=== PATIENT | male | born 1955 | race Caucasian/White ===

== ENCOUNTER 2016-09-13 17:22 | Emergency (ER) | payer SELFPAY ==
[2016-09-13] MEDS ORDERED: DIPHTH/TETANUS/ACEL PERTUSSIS (BOOSTER) 0.5 ML VIAL/PFS IM ONE ×2 (17:31→17:53)
[2016-09-13] MEDS ORDERED: ONDANSETRON HCL 4 MG/2 ML VIAL ONE (17:31)
[2016-09-13] MEDS ORDERED: MORPHINE SULFATE 8 MG/ML INJ ONE (17:31)
--- NOTE | 2016-09-13 17:44 | RADRPT ---
EXAM DATE/TIME: 09/13/2016 17:18 [facility] COMPARISON: No previous studies available for comparison. INDICATIONS : Trauma. MEDICAL HISTORY : Patient fell. SURGICAL HISTORY : None. ENCOUNTER: Initial ACUITY: 1 day PAIN SCORE: 4/10 LOCATION: chest FINDINGS: A single view of the chest demonstrates the lungs to be symmetrically aerated without evidence of mas s, infiltrate or effusion. The cardiomediastinal contours are unremarkable. Osseous structures are intact. CONCLUSION: Normal examination. Dominga Garcia MD on September 13, 2016 at 17:42 Board Certified Radiologist. This report was verified electronically.
--- NOTE | 2016-09-13 17:45 | RADRPT ---
EXAM DATE/TIME: 09/13/2016 17:18 [facility] COMPARISON: No previous studies available for comparison. INDICATIONS : Trauma. MEDICAL HISTORY : Patient fell. SURGICAL HISTORY : None. ENCOUNTER: Initial ACUITY: 1 day PAIN SCORE: 4/10 LOCATION: Pelvis. FINDINGS: A single frontal view of the pelvis demonstrates no evidence of fracture. The bony pelvic ring is in tact. Bony mineralization is normal. The soft tissues are intact. CONCLUSION: Unremarkable examination of the pelvis. Dominga Garcia MD on September 13, 2016 at 17:43 Board Certified Radiologist. This report was verified electronically.
[2016-09-13 17:52] LABS: AUTOMATED NEUTROPHIL # 4.6 TH/MM3 (1.8-7.7); BASOPHIL % 0.5 % (0.0-2.0); EOSINOPHIL # 0.3 TH/MM3 (0-0.4); EOSINOPHIL % 3.3 % (0.0-4.0); HEMATOCRIT 41.8 % (39.0-51.0); HEMO FLAGS DIFF FINAL; I-STAT POTASSIUM 3.8 MMOL/L (3.5-4.9); LYMPH % 29.4 % (9.0-44.0); LYMPHOCYTE # 2.3 TH/MM3 (1.0-4.8); MEAN CORPUSCULAR HEMOGLOBIN 30.6 PG (27.0-34.0); MEAN CORPUSCULAR HGB CONC 33.6 % (32.0-36.0); NEUT % 58.8 % (16.0-70.0); PLATELET COUNT 184 TH/MM3 (150-450); RED BLOOD COUNT 4.59 MIL/MM3 (4.50-5.90); RED CELL DISTRIBUTION WIDTH 12.5 % (11.6-17.2); WHITE BLOOD COUNT 7.8 TH/MM3 (4.0-11.0)
[2016-09-13 18:00] LABS: APTT (PATIENT) 25.2 SEC (24.3-30.1); INTERNATIONAL NORMALIZED RATIO 1.1 RATIO; PROTHROMBIN TIME - PATIENT 12.7 SEC (9.8-11.6)
[2016-09-13] MEDS ORDERED: SODIUM CHLOR 0.9% 1000 ML INJ 1,000 ML IV ONE (18:00)
[2016-09-13] MEDS ORDERED: MORPHINE SULFATE 4 MG/ML INJ IV ONE (18:00)
[2016-09-13] MEDS ORDERED: ONDANSETRON HCL 4 MG/2 ML VIAL IV ONE (18:00)
--- NOTE | 2016-09-13 18:07 | PD ---
HPI Chief Complaint: trauma alert Time Seen by Provider: 17:26 Travel History International Travel<30 days: No Contact w/Intl Traveler<30days: No Traveled to known affect area: No History of Present Illness HPI The patient is a middle-aged male who presents emergency department via private vehicle after a fall. The patient states he was working in the attic when he fell to the attic and landed on a tile floor. The patient estimates he fell anywhere from 1018 feet. The patient states he landed on his back and struck his right elbow as well as his head. The patient is unsure if there was a loss of consciousness. He does complain of mild headache, some posterior neck pain and upper back pain as well as right elbow pain. The patient does admit to drinking approximately 5-6 beers earlier today. Last tetanus shot is unknown. The patient denies any chest pain, shortness breath, nausea, vomiting, or abdominal pain. He denies any numbness, tingling, or weakness of the upper or lower extremities. [facility] Past Medical History Medical History: Denies Significant Hx Past Surgical History Narrative Surgical Appendectomy Family History Narrative Family History Not contributory Social History Alcohol Use: Yes Tobacco Use: Yes Allergies-Medications (Allergen,Severity, Reaction): Coded Allergies: No Known Allergies (Unverified , 09/13/16) Reported Meds & Prescriptions Reported Meds & Active Scripts Active No Active Prescriptions or Reported Medications Review of Systems Except as stated in HPI: all other systems reviewed are Neg HENT: Positive: Headaches, Neck Pain Cardiovascular: No: Chest Pain or Discomfort Respiratory: No: Shortness of Breath Gastrointestinal: No: Nausea, Vomiting, Abdominal Pain Musculoskeletal: Positive: Pain Neurologic: Positive: Headache, Other (unsure if there was a loss of consciousness), No: Change in Mentation, Paresthesia, Sensory Disturbance Physical Exam Narrative GENERAL: Awake, alert, pleasant middle-aged male who appears to be in his 50s or 60s. SKIN: Warm and dry. HEAD: Atraumatic. Normocephalic. EYES: Pupils equal and round. Pupils are 3 mm bilateral reactive. EOMs are intact. ENT: No nasal bleeding or discharge. Breath smells of alcohol. NECK: Trachea midline. No JVD. Cervical collar was in place. Patient has midline tenderness. CARDIOVASCULAR: Regular rate and rhythm. No murmur appreciated. RESPIRATORY: No accessory muscle use. Clear to auscultation. Breath sounds equal bilaterally. GASTROINTESTINAL: Abdomen soft, non-tender, nondistended. No rebound tenderness. MUSCULOSKELETAL: Patient has a small stellate laceration on the posterior aspect of the right elbow. Mild tenderness of the affected area, however, he is able flex and extend the right elbow as well as supinate and pronate. Back: Tenderness over the superior thoracic spine, well-healed scar in the right scapular area. Minimal tenderness over the paravertebral muscles in the mid lumbar region. No obvious hematoma noted. NEUROLOGICAL: Awake and alert. No obvious cranial nerve deficits. Motor grossly within normal limits. Normal speech. Patient is oriented to person, place, month, and year. Sensation is symmetric on the upper and lower extremities. Patient is able to move all 4 extremities. PSYCHIATRIC: Appropriate mood and affect; insight and judgment normal. Data Data Orders Morphine Inj (Morphine Inj) (09/13/16 17:31) Ondansetron Inj (Zofran Inj) (09/13/16 17:31) Rlse-Run-Tqzeha (Booster) Inj (Boostrix (09/13/16 17:31) I-Stat Profile (09/13/16 17:32) I-Stat Creatinine (09/13/16 17:32) Complete Blood Count With Diff (09/13/16 17:32) Prothrombin Time / Inr (Pt) (09/13/16 17:32) Act Partial Throm Time (Ptt) (09/13/16 17:32) Type And Screen (09/13/16 17:32) Alcohol (Ethanol) (09/13/16 17:32) Chest, Single Ap (09/13/16 17:32) Pelvis, Ap Only (Routine) (09/13/16 17:32) Ct Brain W/O Iv Contrast(Rout) (09/13/16 17:32) Ct Cerv Spine W/O Contrast (09/13/16 17:32) Ct Abd/Pel W Iv Contrast(Rout) (09/13/16 17:32) Ct Thorax/ Chest W Iv Contrast (09/13/16 17:32) Ct Thor Spine W/O Contrast (09/13/16 17:32) Ct Lumb Spine W/O Contrast (09/13/16 17:32) Iv Access Insert/Monitor (09/13/16 17:32) Ecg Monitoring (09/13/16 17:32) Oximetry (09/13/16 17:32) Oxygen Administration (09/13/16 17:32) Sodium Chlor 0.9% 1000 Ml Inj (Ns 1000 M (09/13/16 18:00) Nmnu-Jtr-Uwumjb (Booster) Inj (Boostrix (09/13/16 17:53) Ondansetron Inj (Zofran Inj) (09/13/16 18:00) Morphine Inj (Morphine Inj) (09/13/16 18:00) Elbow, Limited (Ap&Lat) (09/13/16 ) Shoulder, Limited(2vws) (09/13/16 ) Iohexol 350 Inj (Omnipaque 350 Inj) (09/13/16 18:11) Labs Laboratory Tests Test 09/13/16 17:20 White Blood Count 7.8 TH/MM3 Red Blood Count 4.59 MIL/MM3 Hemoglobin 14.0 GM/DL Bedside Hemoglobin 14.6 G/DL Hematocrit 41.8 % Bedside Hematocrit 43.0 % Mean Corpuscular Volume 91.0 FL Mean Corpuscular Hemoglobin 30.6 PG Mean Corpuscular Hemoglobin 33.6 % Concent Red Cell Distribution Width 12.5 % Platelet Count 184 TH/MM3 Mean Platelet Volume 8.6 FL Neutrophils (%) (Auto) 58.8 % Lymphocytes (%) (Auto) 29.4 % Monocytes (%) (Auto) 8.0 % Eosinophils (%) (Auto) 3.3 % Basophils (%) (Auto) 0.5 % Neutrophils # (Auto) 4.6 TH/MM3 Lymphocytes # (Auto) 2.3 TH/MM3 Monocytes # (Auto) 0.6 TH/MM3 Eosinophils # (Auto) 0.3 TH/MM3 Basophils # (Auto) 0.0 TH/MM3 CBC Comment DIFF FINAL Differential Comment Prothrombin Time 12.7 SEC Prothromb Time International 1.1 RATIO Ratio Activated Partial 25.2 SEC Thromboplast Time Bedside Sodium 138 MMOL/L Bedside Potassium 3.8 MMOL/L Bedside Chloride 98 MMOL/L Bedside Blood Urea Nitrogen 14 MG/DL Bedside Creatinine 1.1 MG/DL Bedside Glucose 92 MG/DL Ethyl Alcohol Level 104 MG/DL Blood Type B POSITIVE Antibody Screen NEGATIVE [facility] Medical Screen Exam Complete: Yes Emergency Medical Condition: Yes Medical Record Reviewed: Yes EKG Prior to Arrival: No Interpretation(s) Laboratory Tests Test 09/13/16 17:20 White Blood Count 7.8 TH/MM3 Red Blood Count 4.59 MIL/MM3 Hemoglobin 14.0 GM/DL Bedside Hemoglobin 14.6 G/DL Hematocrit 41.8 % Bedside Hematocrit 43.0 % Mean Corpuscular Volume 91.0 FL Mean Corpuscular Hemoglobin 30.6 PG Mean Corpuscular Hemoglobin 33.6 % Concent Red Cell Distribution Width 12.5 % Platelet Count 184 TH/MM3 Mean Platelet Volume 8.6 FL Neutrophils (%) (Auto) 58.8 % Lymphocytes (%) (Auto) 29.4 % Monocytes (%) (Auto) 8.0 % Eosinophils (%) (Auto) 3.3 % Basophils (%) (Auto) 0.5 % Neutrophils # (Auto) 4.6 TH/MM3 Lymphocytes # (Auto) 2.3 TH/MM3 Monocytes # (Auto) 0.6 TH/MM3 Eosinophils # (Auto) 0.3 TH/MM3 Basophils # (Auto) 0.0 TH/MM3 CBC Comment DIFF FINAL Differential Comment Prothrombin Time 12.7 SEC Prothromb Time International 1.1 RATIO Ratio Activated Partial 25.2 SEC Thromboplast Time Bedside Sodium 138 MMOL/L Bedside Potassium 3.8 MMOL/L Bedside Chloride 98 MMOL/L Bedside Blood Urea Nitrogen 14 MG/DL Bedside Creatinine 1.1 MG/DL Bedside Glucose 92 MG/DL Ethyl Alcohol Level 104 MG/DL Blood Type B POSITIVE Antibody Screen NEGATIVE Last Impressions Thoracic Spine CT 09/13/161731 Signed Impressions: Service Date/Time: August 17:44 - CONCLUSION: No evidence of acute bony injury in the thoracic spine. Ulysses Bautista MD Pelvis X-Ray [id number]/161731 Signed Impressions: Service Date/Time: August 17:18 - CONCLUSION: Unremarkable examination of the pelvis. Dominga Garcia MD Lumbar Spine CT [id number]/161731 Signed Impressions: Service Date/Time: August 17:44 - CONCLUSION: No acute bony injury in the lumbosacral spine Ulysses Bautista MD Head CT [id number] Signed Impressions: Service Date/Time: August 17:34 - CONCLUSION: 1. No acute intracranial abnormality. Elian Beaver MD Chest X-Ray [id number] Signed Impressions: Service Date/Time: August 17:18 - CONCLUSION: Normal examination. Dominga Garcia MD Chest CT [id number]/13/161731 Signed Impressions: Service Date/Time: August 17:44 - CONCLUSION: 1. Small soft tissue injury along the anterior aspect of the chest in the midline. 2. CT scan of the thorax is otherwise within normal limits. Elian Beaver MD Cervical Spine CT [id number]/13/161731 Signed Impressions: Service Date/Time: August 17:36 - CONCLUSION: No evidence of acute bony injury to cervical spine Ulysses Bautista MD Abdomen/Pelvis CT 09/[id number]/161731 Signed Impressions: Service Date/Time: August 17:40 - CONCLUSION: Small nonspecific low-density liver lesion. No evidence of acute injury in the abdomen or pelvis. Ulysses Bautista MD Shoulder X-Ray 09/13/16 0000 Signed Impressions: Service Date/Time: August 18:01 - CONCLUSION: 1. No acute bony abnormality of the right shoulder identified. Elian Beaver MD Elbow X-Ray 09/13/16 0000 Signed Impressions: Service Date/Time: August 17:57 - CONCLUSION: 1. No acute bony abnormality identified. Elian Beaver MD Differential Diagnosis Differential diagnosis includes closed head injury, concussion, intracranial hemorrhage, cervical fracture, thoracic vertebral fracture, elbow fracture, laceration, contusion, hematoma. Narrative Course ATLS protocol was followed. The patient's airway, breathing, and circulation were intact upon arrival. 2 large-bore IVs were established, labs were drawn and sent, and the patient was placed on cardiac telemetry monitoring and continuous pulse oximetry monitoring. Chest x-ray and pelvis x-ray were obtained. The patient was magazine editor morphine, Zofran, IV fluids, and his tetanus shot was updated. The patient then went to CT for CT of the brain, cervical spine, thoracic spine, lumbar spine, and abdomen/pelvis. Chest x-ray was unremarkable. Pelvis x-ray was unremarkable. The patient went to CT, CT of the brain, cervical spine, thorax, thoracic spine, lumbar spine, and abdomen/ pelvis were negative. Patient did fall from greater than 10 feet, has alcohol level of 106, but is nonfocal on exam and is oriented. X-ray the right elbow was negative for fracture or foreign body. Patient's laceration was repaired by the physician food trades assistants, Jose Carmen PA-C. Please refer to the procedure no. The patient was evaluated by the trauma surgeon, the patient will be discharged home with a ride. Patient is advised to have wound care to the right elbow, jay jay removed in 10 days, monitor for signs of infection, to follow-up with his primary physician. Diagnosis Diagnosis: Primary Impression: Closed head injury Qualified Code: S09.90XA - Closed head injury, initial encounter Additional Impressions: Trauma Laceration of elbow Qualified Code: S51.011A - Laceration of elbow, right, initial encounter Patient Instructions: General Instructions Additional Instructions: Wound care instructions. Medications as directed. [place] removed in 10 days. Polysporin twice a day, monitor for signs of infection. Return if symptoms worsen or progress. Med/Other Pt SpecificInfo: Prescription(s) given Scripts Ibuprofen 400 Mg Xac601 Mg PO Q6H PRN (PAIN SCALE 1 TO 10) #20 TAB Ref 0 Prov:Toan Barry MD 09/13/16 Hydrocodone-Acetaminophen ([place])5-325 mg Tab1 Tab PO Q6H PRN (PAIN) #15 TAB Ref 0 Prov:Toan Barry MD 09/13/16 Disposition: DISCHARGE HOME Condition: Stable Toan Barry MD Sep 13, 2016 18:07
[2016-09-13] MEDS ORDERED: IOHEXOL 350 MG/ML 10 ML VIAL (for RAD DIAG) IV ONE (18:11)
--- NOTE | 2016-09-13 18:19 | RADRPT ---
EXAM DATE/TIME: 09/13/2016 17:44 [facility] COMPARISON: CT ABDOMEN & PELVIS W CONTRAST, September 13, 2016, 17:40. INDICATIONS : Trauma, fall from attic. IV CONTRAST: 100 cc Omnipaque 350 (iohexol) IV ; Cumulative dose for multiple exams. RADIATION DOSE: 10.05 CTDIvol (mGy) ; Combined studies - Thorax/Abdomen/Pelvis MEDICAL HISTORY : Non-responsive. SURGICAL HISTORY : Non-responsive. ENCOUNTER: Initial ACUITY: 1 day PAIN SCALE: Non-responsive LOCATION: chest TECHNIQUE: Volumetric scanning of the chest was performed. Using automated exposure control and adjustment of t he mA and/or kV according to patient size, radiation dose was kept as low as reasonably achievable to obtain optimal diagnostic quality images. FINDINGS: LUNGS: There is no consolidation or pneumothorax. No concerning pulmonary nodule is visualized. PLEURA: There is no pleural thickening or pleural effusion. MEDIASTINUM: The heart and great vessels demonstrate no acute abnormality. There is no mediastinal or hilar lymph adenopathy. AXILLAE: Within normal limits. No lymphadenopathy. SKELETAL: Within normal limits for patient age. MISCELLANEOUS: The visualized upper abdominal organs demonstrate no acute abnormality. There is a small subcutaneous laceration along the anterior aspect of the sternum. CONCLUSION: 1. Small soft tissue injury along the anterior aspect of the chest in the midline. 2. CT scan of the thorax is otherwise within normal limits. Elian Beaver MD on September 13, 2016 at 18:16 Board Certified Radiologist. This report was verified electronically.
[2016-09-13 18:20] VITALS: BP 200/86; PULSE 69; RESP 18; O2SAT 100
--- NOTE | 2016-09-13 18:20 | RADRPT ---
EXAM DATE/TIME: 09/13/2016 17:34 [facility] COMPARISON: No previous studies available for comparison. INDICATIONS : Trauma, fall from attic. RADIATION DOSE: 69.15 CTDIvol (mGy) MEDICAL HISTORY : Non-responsive. SURGICAL HISTORY : Non-responsive. ENCOUNTER: Initial ACUITY: 1 day PAIN SCALE: Non-responsive LOCATION: cranial TECHNIQUE: Multiple contiguous axial images were obtained of the head. Using automated exposure control and adj ustment of the mA and/or kV according to patient size, radiation dose was kept as low as reasonably a chievable to obtain optimal diagnostic quality images. FINDINGS: CEREBRUM: The ventricles are normal for age. No evidence of midline shift, mass lesion, hemorrhage or acute in farction. No extra-axial fluid collections are seen. POSTERIOR FOSSA: The cerebellum and brainstem are intact. The 4th ventricle is midline. The cerebellopontine angle i s unremarkable. EXTRACRANIAL: The visualized portion of the orbits is intact. SKULL: The calvaria is intact. No evidence of skull fracture. CONCLUSION: 1. No acute intracranial abnormality. Elian Beaver MD on September 13, 2016 at 18:18 Board Certified Radiologist. This report was verified electronically.
--- NOTE | 2016-09-13 18:22 | RADRPT ---
EXAM DATE/TIME: 09/13/2016 18:01 [facility] COMPARISON: ELBOW RIGHT LIMITED (AP & LAT), September 13, 2016, 17:57. INDICATIONS : Trauma alert, fall, right shoulder pain. MEDICAL HISTORY : Unobtainable. SURGICAL HISTORY : Unobtainable. ENCOUNTER: Initial ACUITY: 1 day PAIN SCORE: 7/10 LOCATION: Right arm. FINDINGS: The bony mineralization is normal. The humeral head is well situated within the glenoid fossa. No acu te fracture seen. Limited portion of right lung apex visualized is clear. CONCLUSION: 1. No acute bony abnormality of the right shoulder identified. Elian Beaver MD on September 13, 2016 at 18:20 Board Certified Radiologist. This report was verified electronically.
--- NOTE | 2016-09-13 18:23 | RADRPT ---
EXAM DATE/TIME: 09/13/2016 17:36 [facility] COMPARISON: No previous studies available for comparison. INDICATIONS : Trauma, fall from attic. RADIATION DOSE: 37.64 CTDIvol (mGy) MEDICAL HISTORY : Non-responsive. SURGICAL HISTORY : Non-responsive. ENCOUNTER: Initial ACUITY: 1 day PAIN SCALE: Non-responsive LOCATION: neck TECHNIQUE: Volumetric scanning of the cervical spine was performed. Multiplanar reconstructions in the sagittal, coronal and oblique axial planes were performed. Using automated exposure control and adjustment o f the mA and/or kV according to patient size, radiation dose was kept as low as reasonably achievable to obtain optimal diagnostic quality images. FINDINGS: There is slight anterolisthesis C6 relative to C7. Alignment is otherwise satisfactory. There is no e vidence of cervical spine fracture. Degenerative changes are present with disc space narrowing most s ignificantly at C6-7 and to a lesser degree at other levels. Small endplate osteophytes are noted. Th ere is no significant bony canal or foraminal compromise. There is no evidence of paraspinal hematoma CONCLUSION: No evidence of acute bony injury to cervical spine Ulysses Bautista MD on September 13, 2016 at 18:20 Board Certified Radiologist. This report was verified electronically.
--- NOTE | 2016-09-13 18:24 | RADRPT ---
EXAM DATE/TIME: 09/13/2016 17:57 [facility] COMPARISON: CHEST SINGLE AP, September 13, 2016, 17:18. INDICATIONS : Trauma alert, fall, right elbow pain. MEDICAL HISTORY : Unobtainable. SURGICAL HISTORY : Unobtainable. ENCOUNTER: Initial ACUITY: 1 day PAIN SCORE: 7/10 LOCATION: Right arm. FINDINGS: The osseous structures of the right elbow are intact. There is a small area of soft tissue laceration along the olecranon. No joint effusion is present. CONCLUSION: 1. No acute bony abnormality identified. Elian Beaver MD on September 13, 2016 at 18:22 Board Certified Radiologist. This report was verified electronically.
--- NOTE | 2016-09-13 18:26 | RADRPT ---
EXAM DATE/TIME: 09/13/2016 17:40 [facility] COMPARISON: No previous studies available for comparison. INDICATIONS : Trauma, fall from attic. IV CONTRAST: 100 cc Omnipaque 350 (iohexol) IV ; Cumulative dose for multiple exams. ORAL CONTRAST: No oral contrast ingested. RADIATION DOSE: 10.05 CTDIvol (mGy) ; Combined studies - Thorax/Abdomen/Pelvis MEDICAL HISTORY : Non-responsive. SURGICAL HISTORY : Non-responsive. ENCOUNTER: Initial ACUITY: 1 day PAIN SCALE: Non-responsive LOCATION: abdomen TECHNIQUE: Volumetric scanning of the abdomen and pelvis was performed. Using automated exposure control and ad justment of the mA and/or kV according to patient size, radiation dose was kept as low as reasonably achievable to obtain optimal diagnostic quality images. FINDINGS: There is mild motion degradation limited visualization of the upper abdomen. LOWER LUNGS: The visualized lower lungs are clear. LIVER: There is a slightly greater than 1 cm nonspecific low density in the lateral aspect of the right lobe of the liver. This may be a small cyst or hemangioma. It does not have the appearance of a contusion . SPLEEN: Normal size without lesion. PANCREAS: Within normal limits. KIDNEYS: Normal in size and shape. There is no mass, stone or hydronephrosis. ADRENAL GLANDS: Within normal limits. VASCULAR: There is no aortic aneurysm. BOWEL/MESENTERY: The stomach, small bowel, and colon demonstrate no acute abnormality. There is no free intraperitone al air or fluid. ABDOMINAL WALL: Within normal limits. RETROPERITONEUM: There is no lymphadenopathy. BLADDER: No wall thickening or mass. REPRODUCTIVE: Within normal limits. INGUINAL: There is no lymphadenopathy or hernia. MUSCULOSKELETAL: Within normal limits for patient age. CONCLUSION: Small nonspecific low-density liver lesion. No evidence of acute injury in the abdomen or pelvis. Ulysses Bautista MD on September 13, 2016 at 18:22 Board Certified Radiologist. This report was verified electronically.
--- NOTE | 2016-09-13 18:28 | RADRPT ---
EXAM DATE/TIME: 09/13/2016 17:44 [facility] COMPARISON: No previous studies available for comparison. INDICATIONS : Trauma, fall from attic. RADIATION DOSE: CTDIvol (mGy) ; Reconstructed from previous dataset MEDICAL HISTORY : Non-responsive. SURGICAL HISTORY : Non-responsive. ENCOUNTER: Initial ACUITY: 1 day PAIN SCALE: Non-responsive LOCATION: Paraspinal TECHNIQUE: Volumetric scanning of the lumbar spine was performed. Multiplanar reconstructions in the sagittal, coronal and oblique axial planes were performed. Using automated exposure control and adjustment of the mA and/or kV according to patient size, radiation dose was kept as low as reasonably achievable t o obtain optimal diagnostic quality images. FINDINGS: The lumbar spine alignment is satisfactory. There is no evidence of acute fracture. There is an old r ight-sided pars fracture at L5 without significant associated spondylolisthesis. There is mild arthri tic change with small endplate osteophytes at multiple levels and mild posterior facet arthropathy at several levels. There is no evidence of bony canal or foraminal compromise. No paraspinal hematoma i s present. CONCLUSION: No acute bony injury in the lumbosacral spine Ulysses Bautista MD on September 13, 2016 at 18:24 Board Certified Radiologist. This report was verified electronically.
--- NOTE | 2016-09-13 18:32 | RADRPT ---
EXAM DATE/TIME: 09/13/2016 17:44 [facility] COMPARISON: No previous studies available for comparison. INDICATIONS : Trauma, fall from attic. RADIATION DOSE: CTDIvol (mGy) ; Reconstructed from previous dataset MEDICAL HISTORY : Non-responsive. SURGICAL HISTORY : Non-responsive. ENCOUNTER: Initial ACUITY: 1 day PAIN SCALE: Non-responsive LOCATION: Paraspinal TECHNIQUE: Volumetric scanning of the thoracic spine was performed. Multiplanar reconstructions in the sagittal, coronal and oblique axial planes were performed. Using automated exposure control a nd adjustment of the mA and/or kV according to patient size, radiation dose was kept as low as reason ably achievable to obtain optimal diagnostic quality images. FINDINGS: Thoracic spinal alignment is satisfactory. There is no evidence of fracture. No bony canal or foramin al stenosis is noted. There is no evidence of paraspinal hematoma. CONCLUSION: No evidence of acute bony injury in the thoracic spine. Ulysses Bautista MD on September 13, 2016 at 18:28 Board Certified Radiologist. This report was verified electronically.
[2016-09-13] MEDS ORDERED: NORC5TAB PO (18:51)
[2016-09-13] MEDS ORDERED: IBUP400T20 PO (18:51)
[2016-09-13] MEDS ORDERED: LIDOCAINE 1%/EPINEPHrine 1:100,000 SOLN 20 ML VIAL INFIL ONE (19:00)
--- NOTE | 2016-09-13 19:07 | PD ---
Physical Exam Date Seen by Provider: Sep 13, 2016 Time Seen by Provider: 19:05 Narrative Ulysses Vegas that presents to the ED for evaluation of trauma. I was assessed by my attending to repair laceration to right elbow. Please refer to his note. Data Data Orders Morphine Inj (Morphine Inj) (09/13/16 17:31) Ondansetron Inj (Zofran Inj) (09/13/16 17:31) Kxgm-Hed-Nvcjyr (Booster) Inj (Boostrix (09/13/16 17:31) I-Stat Profile (09/13/16 17:32) I-Stat Creatinine (09/13/16 17:32) Complete Blood Count With Diff (09/13/16 17:32) Prothrombin Time / Inr (Pt) (09/13/16 17:32) Act Partial Throm Time (Ptt) (09/13/16 17:32) Type And Screen (09/13/16 17:32) Alcohol (Ethanol) (09/13/16 17:32) Chest, Single Ap (09/13/16 17:32) Pelvis, Ap Only (Routine) (09/13/16 17:32) Ct Brain W/O Iv Contrast(Rout) (09/13/16 17:32) Ct Cerv Spine W/O Contrast (09/13/16 17:32) Ct Abd/Pel W Iv Contrast(Rout) (09/13/16 17:32) Ct Thorax/ Chest W Iv Contrast (09/13/16 17:32) Ct Thor Spine W/O Contrast (09/13/16 17:32) Ct Lumb Spine W/O Contrast (09/13/16 17:32) Iv Access Insert/Monitor (09/13/16 17:32) Ecg Monitoring (09/13/16 17:32) Oximetry (09/13/16 17:32) Oxygen Administration (09/13/16 17:32) Sodium Chlor 0.9% 1000 Ml Inj (Ns 1000 M (09/13/16 18:00) Bolm-Asn-Aehhtr (Booster) Inj (Boostrix (09/13/16 17:53) Ondansetron Inj (Zofran Inj) (09/13/16 18:00) Morphine Inj (Morphine Inj) (09/13/16 18:00) Elbow, Limited (Ap&Lat) (09/13/16 ) Shoulder, Limited(2vws) (09/13/16 ) Iohexol 350 Inj (Omnipaque 350 Inj) (09/13/16 18:11) Lidocai-Epi 1%-1:100,000 Inj (Xylocaine- (09/13/16 19:00) Labs Laboratory Tests Test 09/13/16 17:20 White Blood Count 7.8 TH/MM3 Red Blood Count 4.59 MIL/MM3 Hemoglobin 14.0 GM/DL Bedside Hemoglobin 14.6 G/DL Hematocrit 41.8 % Bedside Hematocrit 43.0 % Mean Corpuscular Volume 91.0 FL Mean Corpuscular Hemoglobin 30.6 PG Mean Corpuscular Hemoglobin 33.6 % Concent Red Cell Distribution Width 12.5 % Platelet Count 184 TH/MM3 Mean Platelet Volume 8.6 FL Neutrophils (%) (Auto) 58.8 % Lymphocytes (%) (Auto) 29.4 % Monocytes (%) (Auto) 8.0 % Eosinophils (%) (Auto) 3.3 % Basophils (%) (Auto) 0.5 % Neutrophils # (Auto) 4.6 TH/MM3 Lymphocytes # (Auto) 2.3 TH/MM3 Monocytes # (Auto) 0.6 TH/MM3 Eosinophils # (Auto) 0.3 TH/MM3 Basophils # (Auto) 0.0 TH/MM3 CBC Comment DIFF FINAL Differential Comment Prothrombin Time 12.7 SEC Prothromb Time International 1.1 RATIO Ratio Activated Partial 25.2 SEC Thromboplast Time Bedside Sodium 138 MMOL/L Bedside Potassium 3.8 MMOL/L Bedside Chloride 98 MMOL/L Bedside Blood Urea Nitrogen 14 MG/DL Bedside Creatinine 1.1 MG/DL Bedside Glucose 92 MG/DL Ethyl Alcohol Level 104 MG/DL Blood Type B POSITIVE Antibody Screen NEGATIVE [facility] Medical Record Reviewed: Yes Supervised Visit with JEREMÍAS: No Procedures Procedure Narrative LACERATION LOCATION: right elbow LENGTH: 1.5 cm NUMBER OF STITCHES/DERRICK: 4 derrick REPAIR: The area of the laceration was prepped with Betadine and sterilely draped. The laceration was infiltrated with 1% Xylocaine. The wound was copiously irrigated and explored without evidence of foreign body, tendon injury or neurovascular injury. The wound was closed using sterile stapler. This was a 1 layer repair. A sterile dressing was applied. The patient was advised to keep the dressing clean and dry. Patient tolerated the procedure well. Diagnosis Primary Impression: Closed head injury Qualified Code: S09.90XA - Closed head injury, initial encounter Additional Impressions: Trauma Laceration of elbow Qualified Code: S51.011A - Laceration of elbow, right, initial encounter Patient Instructions: General Instructions Additional Instruction: Wound care instructions. Medications as directed. [place] removed in 10 days. Polysporin twice a day, monitor for signs of infection. Return if symptoms worsen or progress. Scripts Ibuprofen 400 Mg [id number] Mg PO Q6H PRN (PAIN SCALE 1 TO 10) #20 TAB Ref 0 Prov:Toan Barry MD 09/13/16 Hydrocodone-Acetaminophen ([place])5-325 mg Tab1 Tab PO Q6H PRN (PAIN) #15 TAB Ref 0 Prov:Toan Barry MD 09/13/16 Disposition: 01 DISCHARGE HOME Condition: Stable Jose Carmen Sep 13, 2016 19:07
[2016-09-13 19:08] VITALS: RESP 18; O2SAT 99
[2016-09-14] MEDS ORDERED: NORC5TAB PO (07:53)
[2016-09-14] MEDS ORDERED: IBUP400T20 PO (07:53)
--- NOTE | 2016-09-14 07:53 | PD ---
Data Data Last Documented VS Vital Signs Date Time Temp Pulse Resp B/P Pulse Ox O2 Delivery O2 Flow Rate FiO2 09/13/16 19:08 98 Room Air 09/13/16 19:08 18 09/13/16 18:20 69 200/86 Orders Morphine Inj (Morphine Inj) (09/13/16 17:31) Ondansetron Inj (Zofran Inj) (09/13/16 17:31) Esvp-Ure-Mrlvfm (Booster) Inj (Boostrix (09/13/16 17:31) I-Stat Profile (09/13/16 17:32) I-Stat Creatinine (09/13/16 17:32) Complete Blood Count With Diff (09/13/16 17:32) Prothrombin Time / Inr (Pt) (09/13/16 17:32) Act Partial Throm Time (Ptt) (09/13/16 17:32) Type And Screen (09/13/16 17:32) Alcohol (Ethanol) (09/13/16 17:32) Chest, Single Ap (09/13/16 17:32) Pelvis, Ap Only (Routine) (09/13/16 17:32) Ct Brain W/O Iv Contrast(Rout) (09/13/16 17:32) Ct Cerv Spine W/O Contrast (09/13/16 17:32) Ct Abd/Pel W Iv Contrast(Rout) (09/13/16 17:32) Ct Thorax/ Chest W Iv Contrast (09/13/16 17:32) Ct Thor Spine W/O Contrast (09/13/16 17:32) Ct Lumb Spine W/O Contrast (09/13/16 17:32) Iv Access Insert/Monitor (09/13/16 17:32) Ecg Monitoring (09/13/16 17:32) Oximetry (09/13/16 17:32) Oxygen Administration (09/13/16 17:32) Sodium Chlor 0.9% 1000 Ml Inj (Ns 1000 M (09/13/16 18:00) Bpac-Fgn-Tvkqhd (Booster) Inj (Boostrix (09/13/16 17:53) Ondansetron Inj (Zofran Inj) (09/13/16 18:00) Morphine Inj (Morphine Inj) (09/13/16 18:00) Elbow, Limited (Ap&Lat) (09/13/16 ) Shoulder, Limited(2vws) (09/13/16 ) Iohexol 350 Inj (Omnipaque 350 Inj) (09/13/16 18:11) Lidocai-Epi 1%-1:100,000 Inj (Xylocaine- (09/13/16 19:00) [place] (09/13/16 ) Trauma Office Use Only (09/13/16 07:14) Labs Laboratory Tests Test 09/13/16 17:20 White Blood Count 7.8 TH/MM3 Red Blood Count 4.59 MIL/MM3 Hemoglobin 14.0 GM/DL Bedside Hemoglobin 14.6 G/DL Hematocrit 41.8 % Bedside Hematocrit 43.0 % Mean Corpuscular Volume 91.0 FL Mean Corpuscular Hemoglobin 30.6 PG Mean Corpuscular Hemoglobin 33.6 % Concent Red Cell Distribution Width 12.5 % Platelet Count 184 TH/MM3 Mean Platelet Volume 8.6 FL Neutrophils (%) (Auto) 58.8 % Lymphocytes (%) (Auto) 29.4 % Monocytes (%) (Auto) 8.0 % Eosinophils (%) (Auto) 3.3 % Basophils (%) (Auto) 0.5 % Neutrophils # (Auto) 4.6 TH/MM3 Lymphocytes # (Auto) 2.3 TH/MM3 Monocytes # (Auto) 0.6 TH/MM3 Eosinophils # (Auto) 0.3 TH/MM3 Basophils # (Auto) 0.0 TH/MM3 CBC Comment DIFF FINAL Differential Comment Prothrombin Time 12.7 SEC Prothromb Time International 1.1 RATIO Ratio Activated Partial 25.2 SEC Thromboplast Time Bedside Sodium 138 MMOL/L Bedside Potassium 3.8 MMOL/L Bedside Chloride 98 MMOL/L Bedside Blood Urea Nitrogen 14 MG/DL Bedside Creatinine 1.1 MG/DL Bedside Glucose 92 MG/DL Ethyl Alcohol Level 104 MG/DL Blood Type B POSITIVE Antibody Screen NEGATIVE MDM Supervised Visit with JEREMÍAS: No Narrative Course Patient presented back to the ED the day after his discharge. Unfortunately patient was still registered under his Ulysses Vegas name when he was discharged with home prescriptions. Patient was appropriately registered under his josé antonio name and his discharge prescriptions were reprinted. Diagnosis Primary Impression: Closed head injury Qualified Code: S09.90XA - Closed head injury, initial encounter Additional Impressions: Trauma Laceration of elbow Qualified Code: S51.011A - Laceration of elbow, right, initial encounter Patient Instructions: General Instructions, Narcotic given in the ED, Laceration (ED), Head Injury (ED) Departure Forms: Tests/Procedures Additional Instruction: Wound care instructions. Medications as directed. [place] removed in 10 days. Polysporin twice a day, monitor for signs of infection. Return if symptoms worsen or progress. Scripts Ibuprofen 400 Mg [id number] Mg PO Q6H PRN (PAIN SCALE 1 TO 10) #20 TAB Ref 0 Prov:Jazmin Christensen MD 09/14/16 Hydrocodone-Acetaminophen ([place])5-325 mg Tab1 Tab PO Q6H PRN (PAIN) #15 TAB Ref 0 Prov:Jazmin Christensen MD 09/14/16 Disposition: 01 DISCHARGE HOME Condition: Stable Jazmin Christensen MD Sep 14, 2016 07:53
== END 2016-09-13 20:29 | disposition home or self-care (01) ==
LOC: NEPI 17:22 → EDBD 17:22 → NEPE 20:29
DX: S51.011A Laceration without foreign body of right elbow, initial encounter (principal); S09.8XXA Other specified injuries of head, initial encounter; M25.511 Pain in right shoulder; M54.6 Pain in thoracic spine; M54.2 Cervicalgia; Z23 Encounter for immunization; Z72.0 Tobacco use; W17.89XA Other fall from one level to another, initial encounter; Y93.89 Activity, other specified; Y92.89 Other specified places as the place of occurrence of the external cause
CPT/HCPCS: 12001; 70450; 71010; 71260; 72125; 72128; 72131; 72170; 73030; 73070; 74177; 80320; 82435; 82565; 82947; 84132; 84295; 84520; 85025; 85610; 85730; 86850; 86900; 86901; 90471; 90715; 96374; 96375; 99285; J2270; J2405; L0150; Q9967

== ENCOUNTER 2016-09-14 07:56 | Emergency (ER) | payer SELFPAY ==
[~2016-09-14] VITALS: Ht 170.2 cm; Wt 75.0 kg
[~2016-09-14 07:56] MED LIST: IBUP400T20 PO; NORC5TAB PO
[2016-09-14 07:59] VITALS: BP 159/81; PULSE 65; RESP 15; TEMP 98.1; O2SAT 99
--- NOTE | 2016-09-14 08:23 | PD ---
HPI Chief Complaint: Wound/Suture/Staple Re-Check Time Seen by Provider: 08:10 Travel History International Travel<30 days: No Contact w/Intl Traveler<30days: No Traveled to known affect area: No History of Present Illness HPI 60-year-old male presents to the emergency department for reevaluation of a laceration to his right elbow that was closed using jay jay. Reports looking at it last night and pulled something from the wound, but doesn't know what it was. He says he thinks it was a piece of meat. He said he has not looked at it this morning and doesn't know what looks like, but he really see it because it on his elbow and wants it evaluated. Denies fever, chills, nausea, vomiting. Denies paresthesias, loss of sensation, decreased range of motion, decreased strength to the affected extremity. Has been doing wound care as advised. Denies allergies. No other modifying factors or associated signs and symptoms. History Past Medical Histgory Tetanus Vaccination: < 5 Years Social History Alcohol Use: Yes Tobacco Use: Yes Allergies-Medications (Allergen,Severity, Reaction): Coded Allergies: No Known Allergies (Unverified , 09/13/16) Reported Meds & Prescriptions Reported Meds & Active Scripts Active Ibuprofen 400 Mg Tab 400 Mg PO Q6H PRN [place] (Hydrocodone-Acetaminophen) 5-325 mg Tab 1 Tab PO Q6H PRN Review of Systems Except as stated in HPI: all other systems reviewed are Neg Physical Exam Narrative GENERAL: Well-nourished, well-developed male patient, in no acute distress SKIN: Warm and dry. Right elbow with laceration that is well approximated and jay jay intact; without erythema, edema, drainage; without dehiscence. HEAD: Atraumatic. Normocephalic. EYES: Pupils equal and round. No scleral icterus. No injection or drainage. ENT: Mucosa pink and moist. Airway patent. NECK: Trachea midline. CARDIOVASCULAR: Regular rate. RESPIRATORY: No accessory muscle use. GASTROINTESTINAL: Flat. MUSCULOSKELETAL: No obvious deformities. No clubbing. No cyanosis. No edema. NEUROLOGICAL: Awake and alert. Oriented 3. No obvious cranial nerve deficits. Motor grossly within normal limits. Normal speech. PSYCHIATRIC: Appropriate mood and affect; insight and judgment normal. Data Data Last Documented VS Vital Signs Date Time Temp Pulse Resp B/P Pulse Ox O2 Delivery O2 Flow Rate FiO2 09/14/16 07:59 98.1 65 15 159/81 99 MDM Medical Screen Exam Complete: Yes Emergency Medical Condition: No Differential Diagnosis Wound recheck, medical clearance, wound dehiscence Narrative Course 60-year-old male requesting wound recheck to his right elbow laceration. He was seen here last night and jay jay were used to close the wound. The wound is well approximated, jay jay intact, and without signs of infection. There is no dehiscence noted. Polysporin and Band-Aid applied. Vital signs are stable and the patient is stable for outpatient follow-up and treatment. The patient has no urgent or emergent medical complaints. There is no emergent or urgent medical need at this time. I instructed the patient to follow up with their primary care provider. A medical screening exam was performed: At the time of evaluation the presenting medical condition was determined not to be of an emergent nature. The patient was given the option of receiving additional care, but declined. Patient was given options for additional community resources from which to obtain care. The Patient Has Been advised to seek medical attention for their presenting complaint. The patient has been advised to return to the ER at any time if an emergent condition develops. Primary Impression: Encounter for medical screening examination Condition: Stable Rosemarie Joshi Sep 14, 2016 08:23
== END 2016-09-14 08:20 | disposition left against medical advice (07) ==
LOC: NEPB 07:56
DX: S51.011D Laceration without foreign body of right elbow, subsequent encounter (principal); Z72.0 Tobacco use; X58.XXXD Exposure to other specified factors, subsequent encounter
CPT/HCPCS: 99281

== ENCOUNTER 2016-09-28 16:15 | Emergency (ER) | payer SELFPAY ==
[~2016-09-28] VITALS: Ht 170.2 cm; Wt 75.0 kg
[2016-09-28 16:16] VITALS: BP 144/84; PULSE 82; RESP 16; TEMP 98.1; O2SAT 96
[2016-09-28] MEDS ORDERED: IBUP800T23 PO (16:59)
[2016-09-28] MEDS ORDERED: BACT800T5 PO (16:59)
--- NOTE | 2016-09-28 17:08 | PD ---
HPI Chief Complaint: Wound/Suture/Staple Re-Check Time Seen by Provider: 17:02 Travel History International Travel<30 days: No Contact w/Intl Traveler<30days: No Traveled to known affect area: No History of Present Illness HPI 60-year-old male partner for follow-up right elbow laceration. Patient was seen 2 weeks ago and had repair done with jay jay to his posterior right elbow over the olecranon. Patient states that it continues to be mildly swollen and erythematous, but no drainage is noted. There is no lymphangitis, there is no fever chills or other symptoms. Therefore jay jay in place at this time. He has no known drug allergies. PFSH Social History Alcohol Use: Yes Tobacco Use: Yes Substance Use: No Allergies-Medications (Allergen,Severity, Reaction): Coded Allergies: No Known Allergies (Unverified , 09/28/16) Reported Meds & Prescriptions Reported Meds & Active Scripts Active Ibuprofen 800 Mg Tab 800 Mg PO Q8H PRN Bactrim DS (Sulfamethoxazole-Trimethoprim) 800-160 Mg Tab 1 Tab PO BID Ibuprofen 400 Mg Tab 400 Mg PO Q6H PRN [place] (Hydrocodone-Acetaminophen) 5-325 mg Tab 1 Tab PO Q6H PRN Review of Systems Except as stated in HPI: all other systems reviewed are Neg General / Constitutional: No: Fever Eyes: No: Visual changes HENT: No: Headaches Cardiovascular: No: Chest Pain or Discomfort Respiratory: No: Shortness of Breath Gastrointestinal: No: Abdominal Pain Genitourinary: No: Dysuria Musculoskeletal: No: Pain Skin: No Rash Neurologic: No: Weakness Psychiatric: No: Depression Endocrine: No: Polydipsia Hematologic/Lymphatic: No: Easy Bruising Physical Exam Narrative GENERAL: Patient appears in no acute distress. SKIN: Warm and dry. Normal color. Normal turgor. There is a well-healed laceration to the right posterior elbow, with localized swelling of the olecranon and mild erythema. There is no drainage or lymphangitis. Range of motion is full. HEAD: Atraumatic. Normocephalic. EYES: Pupils equal and round. No scleral icterus. No injection or drainage. ENT: No nasal bleeding or discharge. Mucous membranes pink and moist. Pharynx is normal. NECK: Trachea midline. Neck is supple. CARDIOVASCULAR: Regular rate and rhythm. RESPIRATORY: No accessory muscle use. Clear to auscultation. Breath sounds equal bilaterally. MUSCULOSKELETAL: Extremities without clubbing, cyanosis, or edema. No obvious deformities. Full range of motion. NEUROLOGICAL: Awake and alert. No obvious cranial nerve deficits. Motor grossly within normal limits. Five out of 5 muscle strength in the arms and legs. Normal speech. PSYCHIATRIC: Appropriate mood and affect; insight and judgment normal. Data Data Last Documented VS Vital Signs Date Time Temp Pulse Resp B/P Pulse Ox O2 Delivery O2 Flow Rate FiO2 09/28/16 16:16 98.1 82 16 144/84 96 MDM Medical Decision Making Medical Screen Exam Complete: Yes Emergency Medical Condition: Yes Differential Diagnosis Fall. Laceration right elbow. Stable removal. Olecranon bursitis. Possible cellulitis. Narrative Course Patient is medically stable at time of exam. [place] are removed without difficulty. Patient placed on Bactrim DS twice a day 7 days. Patient given ibuprofen 800 mg 3 times daily with food #30. Patient To follow-up with his primary care physician as needed or return to emergency department as needed. Diagnosis Primary Impression: Laceration of elbow Qualified Code: S51.011D - Laceration of elbow, right, subsequent encounter Additional Impressions: Encounter for removal of jay jay Cellulitis Referrals: Primary Care Physician Patient Instructions: Cellulitis (DC), Elbow Bursitis (ED), Elbow Bursitis Exercises (GEN), General Instructions Additional Instructions: [place] are removed without difficulty. Patient placed on Bactrim DS twice a day 7 days. Patient given ibuprofen 800 mg 3 times daily with food #30. Patient To follow-up with his primary care physician as needed or return to emergency department as needed. Med/Other Pt SpecificInfo: Prescription(s) given Scripts Ibuprofen 800 Mg [id number] Mg PO Q8H PRN (Pain/Inflammation) #30 TAB Prov:Surya Ennis MD 09/28/16 Sulfamethoxazole-Trimethoprim (Bactrim DS)800-160 Mg Tab1 Tab PO BID #14 TAB Prov:Surya Ennis MD 09/28/16 Disposition: 01 DISCHARGE HOME Condition: Stable Danny Chavez Sep 28, 2016 17:08
== END 2016-09-28 17:38 | disposition home or self-care (01) ==
LOC: NEPB 16:15
DX: S51.019D Laceration without foreign body of unspecified elbow, subsequent encounter (principal); L03.114 Cellulitis of left upper limb; Z48.02 Encounter for removal of sutures; Z72.0 Tobacco use; X58.XXXD Exposure to other specified factors, subsequent encounter
CPT/HCPCS: 99282

== ENCOUNTER 2018-02-08 10:05 | Emergency (ER) | payer SELFPAY ==
[~2018-02-08] VITALS: Ht 170.2 cm; Wt 75.0 kg
[~2018-02-08 10:05] MED LIST changes: +BACT800T5 PO; +IBUP1TAB5 PO; +IBUP1TAB7 PO; -IBUP400T20 PO
[2018-02-08 10:11] VITALS: BP 142/74; PULSE 71; RESP 18; TEMP 98.5; O2SAT 95
[2018-02-08] MEDS ORDERED: LIDOCAINE 1%/EPINEPHrine 1:100,000 SOLN 20 ML VIAL INFIL ONE (10:30)
[2018-02-08] MEDS ORDERED: TETANUS/DIPHTHERIA TOXOID ADULT 0.5 ML VIAL IM ONE (10:30)
[2018-02-08] MEDS ORDERED: LIDOCAINE 1%/EPINEPHrine 1:100,000 SOLN 30 ML VIAL ONE (10:32)
--- NOTE | 2018-02-08 10:48 | PD ---
HPI Chief Complaint: Laceration/Skin Injury Time Seen by Provider: 10:17 Travel History International Travel<30 days: No Contact w/Intl Traveler<30days: No Traveled to known affect area: No History of Present Illness HPI 62-year-old male presents emergency department accidental laceration to the dorsal left hand over the MIP joint of the third digit. Bleeding is controlled. He is unsure of his last tetanus. It was from a sharp edge on a plastic piece of "wood" that he was working on his boat with. It is superficial and does not seem to interfere with function. He denies numbness or tingling. No other complaints. Pain is minimal. No known drug allergies. PFSH Past Medical History Medical History: Denies Significant Hx Tetanus Vaccination: Unknown Influenza Vaccination: No Past Surgical History Appendectomy: Yes Other Surgery: Yes (tendon surgery left hand) Social History Alcohol Use: Yes (daily) Tobacco Use: Yes Substance Use: No Allergies-Medications (Allergen,Severity, Reaction): Coded Allergies: No Known Allergies (Unverified Adverse Reaction, Unknown, 02/08/18) Reported Meds & Prescriptions Reported Meds & Active Scripts Active No Active Prescriptions or Reported Medications Review of Systems Except as stated in HPI: all other systems reviewed are Neg General / Constitutional: No: Fever Eyes: No: Visual changes HENT: No: Headaches Cardiovascular: No: Chest Pain or Discomfort Respiratory: No: Shortness of Breath Gastrointestinal: No: Abdominal Pain Genitourinary: No: Dysuria Musculoskeletal: No: Pain Skin: Positive Lesions (Laceration), No Rash Neurologic: No: Weakness Psychiatric: No: Depression Endocrine: No: Polydipsia Hematologic/Lymphatic: No: Easy Bruising Physical Exam Narrative GENERAL: Patient is in no acute distress. SKIN: Warm and dry. Normal color. Normal turgor. Patient has a 2 cm jagged almost full-thickness laceration to the dorsal left hand over the third MIP joint. It does not involve the deep structures. Bleeding is minimal. Capillary refill is brisk. HEAD: Atraumatic. Normocephalic. EYES: Pupils equal and round. No scleral icterus. No injection or drainage. ENT: No nasal bleeding or discharge. Mucous membranes pink and moist. Pharynx is clear. Airways patent. NECK: Trachea midline. Supple. CARDIOVASCULAR: Regular rate and rhythm. RESPIRATORY: No accessory muscle use. Clear to auscultation. Breath sounds equal bilaterally. MUSCULOSKELETAL: Extremities without clubbing, cyanosis, or edema. No obvious deformities. Full range of motion and sensation. Normal application penetration tester strength. NEUROLOGICAL: Awake and alert. No obvious cranial nerve deficits. Motor grossly within normal limits. Five out of 5 muscle strength in the arms and legs. Normal speech. PSYCHIATRIC: Appropriate mood and affect; insight and judgment normal. Data Data Last Documented VS Vital Signs Date Time Temp Pulse Resp B/P (MAP) Pulse Ox O2 Delivery O2 Flow Rate FiO2 02/08/18 10:11 98.5 71 18 142/74 (96) 95 Orders Orders Lidocai-Epi 1%-1:100,000 Inj (Xylocaine- (02/08/18 10:30) Tetanus/Diphtheria Tox Adult (Tetanus/Di (02/08/18 10:30) Lidocai-Epi 1%-1:100,000 Inj (Xylocaine- (02/08/18 10:32) MDM Medical Decision Making Medical Screen Exam Complete: Yes Emergency Medical Condition: Yes Differential Diagnosis Accidental laceration. Need for closure. Need for tetanus. Narrative Course Tetanus is given 0.5 mg IM. Laceration is closed, and wound instructions given. Sutures should remain in place for 7-10 days. Sutures should be removed here at that time. Procedures Procedure Narrative LACERATION LOCATION: Left dorsal hand over MIP joint of the third finger. LENGTH: 2 cm NUMBER OF STITCHES/MARGI: 4 simple interrupted REPAIR: The area of the laceration was prepped with Betadine and sterilely draped. The laceration was infiltrated with 3 mL's 1% lidocaine. The wound was copiously irrigated and explored without evidence of foreign body, tendon injury or neurovascular injury. The wound was closed using 5-0 Ethilon. This was a single layer repair. A sterile dressing was applied. The patient was advised to keep the dressing clean and dry. Patient tolerated the procedure well. Diagnosis Primary Impression: Laceration of left hand without complication, excluding fingers Qualified Codes: S61.412A - Laceration without foreign body of left hand, initial encounter Patient Instructions: Care For Your Stitches (ED), General Instructions Scripts No Active Prescriptions or Reported Meds Disposition: 01 DISCHARGE HOME Condition: Stable Danny Chavez Feb 08, 2018 10:48
== END 2018-02-08 11:05 | disposition home or self-care (01) ==
LOC: NEPD 10:05
DX: S61.412A Laceration without foreign body of left hand, initial encounter (principal); W26.8XXA Contact with other sharp object(s), not elsewhere classified, initial encounter; Z23 Encounter for immunization
CPT/HCPCS: 12001; 90471; 90714